=== PATIENT | male | born 1950 | race Caucasian/White ===

== ENCOUNTER → 2017-05-01 | Outpatient (CLI) | payer OTHER ==
[~2017-05-01] MED LIST: ACYCLOVIR 200200 MG; ADVAIR 500-501 EACH INH; ADVAIR HFA 230M12 GM INH; ALBUTEROL2.5 MG/0.5 INH; ANTIVERT25 MG PO; ASPIRIN EC81 M1 PO; ASPIRIN325 PO; BACTRIM DS TAB1 EACH PO; BENICAR20 MG PO; BENICAR40 MG PO; BYSTOLIC 5 MG5 M1 PO; CIPRO HC OTIC S10 ML; CLEOCIN HCL150 MG PO; CLEOCIN HCL300 MG PO; COMBIVENT INH; COZAAR 50 MG TA50 M1 PO; DOXYCYCLINE 10100 M1 PO; EFFIENT10 MG PO; FISH OIL 1,001000 M2 PO; FISH OIL 1,2001 EAC3 PO; GLUCOPHAGE1000 MG PO; HYDROCODON-ACE1 EAC7 PO; IBUPROFEN 600600 M1 PO; LIDOCAINE VISC100 ML MM; METFORMIN HCL500 MG PO; MIRAPEX 0.250.25 M1 PO; NESINA25 MG PO; NORCO 5-325 TA1 EACH PO; OMEPRAZOLE40 MG PO; ORADENT 0.1% DEN5 G1; PERCOCET 5-3251 EACH PO; PLAVIX 75 MG TA75 M1 PO; PLAVIX 75 MG TA75 MG PO; RANEXA500 MG PO; SPIRIVA INH; SPIRIVA RESPIMAT4 G1 IH; TOPROL XL50 MG PO; VALIUM2 MG PO; XANAX 0.5 MG0.5 M1 PO; XANAX 0.5 MG0.5 MG PO; XOPENEX 0.63 MG/3 M1 INH; XOPENEX HF1 UDINHALE IH; XOPENEX HFA15 GM INH; ZITHROMAX250 MG PO; ZOCOR 20 MG TAB20 M1 PO; ZOCOR40 MG PO
[2017-05-01 09:13] LABS: CALCIUM 9.6 mg/dL (8.5-10.1); CREATININE 0.9 mg/dL (0.7-1.3); POTASSIUM 4.7 mmol/L (3.5-5.1)
== END ==
LOC: CAT 08:45
PROVIDERS: Internal Medicine Cardiovascular Disease
DX: K80.20 Calculus of gallbladder without cholecystitis without obstruction (principal); N28.1 Cyst of kidney, acquired; K44.9 Diaphragmatic hernia without obstruction or gangrene; R16.2 Hepatomegaly with splenomegaly, not elsewhere classified; I25.10 Atherosclerotic heart disease of native coronary artery without angina pectoris

== ENCOUNTER → 2020-04-15 | Outpatient (CLI) | payer BC, OTHER ==
[~2020-04-15] MED LIST changes: +ASPIR 8181 MG PO; +FLOMAX0.4 MG PO; +LEXAPRO 10 MG T10 M1 PO; +TRADJENTA5 MG PO
== END ==
LOC: SJCVCIMAG 07:35
PROVIDERS: ATTEND Internal Medicine Cardiovascular Disease
DX: I25.10 Atherosclerotic heart disease of native coronary artery without angina pectoris (principal); I73.9 Peripheral vascular disease, unspecified; E11.9 Type 2 diabetes mellitus without complications; I70.8 Atherosclerosis of other arteries; J44.9 Chronic obstructive pulmonary disease, unspecified; I71.4 Abdominal aortic aneurysm, without rupture; I10 Essential (primary) hypertension; E78.00 Pure hypercholesterolemia, unspecified; I25.810 Atherosclerosis of coronary artery bypass graft(s) without angina pectoris; Z95.1 Presence of aortocoronary bypass graft; Z90.49 Acquired absence of other specified parts of digestive tract; Z79.899 Other long term (current) drug therapy; Z79.4 Long term (current) use of insulin

== ENCOUNTER → 2020-04-20 | Outpatient (CLI) | payer BC, OTHER ==
[~2020-04-20] VITALS: Ht 177.8 cm; Wt 108.9 kg
[~2020-04-20] MED LIST changes: +BASAGLAR K100 UNIT/1 SUBQ; +BUDESONIDE-FO10.2 G1 INH; +FISH OIL 1,0001 EAC9 PO; +JARDIANCE25 MG PO
[2020-04-20 07:17] VITALS: BP 127/70
[2020-04-20 07:19] LABS: HEMATOCRIT 38.8 % (42.0-52.0); HEMOGLOBIN 12.6 gm/dL (14.0-18.0); MCH 27.3 pg (26.0-34.0); MCHC 32.5 g/dL (28.0-37.0); MCV 84.2 fL (80.0-100.0); RBC 4.61 mil/uL (4.50-6.00); RDW 17.3 % (10.5-14.5); WBC 5.4 thou/uL (4.0-11.0)
[2020-04-20 07:25] LABS: CALCIUM 9.6 mg/dL (8.5-10.1); CREATININE 0.8 mg/dL (0.7-1.3); POTASSIUM 4.3 mmol/L (3.5-5.1)
--- NOTE | 2020-04-20 17:51 | CATHLAB ---
[facility] [place] [address] INVASIVE PROCEDURE REPORT Name: LYNN DOVER Room #: REG EDMOND Rivero.#: [id number] Admission: 04/20/20 Attend Phys: Bryn Broussard MD Discharge: Date of : 52 Report #: [id number] THIS REPORT FOR: cc: Dakota Judd MD, Rene P. MD Mancuso, Gerald M. MD [facility] ~ APPROVED REPORT Study performed: 04/20/2020 08:01:55 Patient Details Patient Status: Out-Patient Room #: The patient is a 69 year-old male Event Personnel Josse Marquez Licensed Optician, Matt Benitez RN, Viviana Burdick RTR, MJ Bedolla, Sunshine Villalta Monitor Procedures Performed Art Access - R femoral artery* Left Heart Cath Coronaries, Bypass Grafts [id number] [id number] Initial Mod Sed Same Phys/QHP Gr5y [id number] Mod Sed Same Phys/QHP Ea [id number] Indication Chest pain Procedure Narrative The Right Groin^ was infiltrated with subcutaneous anesthesia. A SHEATH BRITE-TIP 6F X 11CM ([id number]) sheath was inserted into the RFA^. Coronary angiography was performed using coronary diagnostic catheters. The right coronary system was accessed and visualized with a JR4 catheter. The left coronary system was accessed and visualized with a JL4 catheter. The left ventricle was accessed and visualized with a STR PIG catheter. Left ventriculogram was performed in 30 degree projection. THE FOLLOWING ARE THE CURRENT GRAFTS: SVG TO OM, MOSES TO LAB, RADIAL TO PDA. ALL OPEN Intraoperative Conscious Sedation Sedation start time: 818 Case end Time: 854 Fentanyl 100.0 mcg Versed 2.0 mg Fluoro Time: 7.51 minutes Dose: DAP 82531.40 cGycm2 [address] [facility] [place] [address] INVASIVE PROCEDURE REPORT Name: LYNN DOVER Room #: REG [facility].#: [id number] Admission: 04/20/20 Attend Phys: Bryn Broussard, Discharge: Date of : 52 Report #: [id number] Contrast Type and Amount: Omnipaque 105 ml Hemodynamics The aortic pressure is 153/64 mmHg with a mean of 78 mmHg. The left ventricular pressure is 145/4 mmHg with a mean of mmHg. The left ventricular end diastolic pressure is 21 mmHg. Conclusion #1. Normal left ventricular size and systolic function EF 55%. Subtle anterior lateral hypokinesis #2 left main large mildly calcified giving rise to LAD and circumflex both of which occluded #3 LAD moderately calcified occludes proximally. This is filled via a MOSES graft. #4 MOSES to LAD is intact as well preserved brisk flow into this LAD diffusely disease around the apex. Retrograde filling of a diagonal system. #5 dominant right is moderately diseased in the mid distal vessel 80 to 90% filling a posterior lateral the PDA is flush occluded at the bifurcation of the PDA and TAMMY. Posterior lateral branch has minimal distribution. #6 relatively small caliber radial graft to the PDA is intact is feeling a relatively small distribution of this PDA which is diffusely diseased #7 SVG to the OM is intact filling OM1 and OM 2 with diffuse irregularity. The graft is widely patent. The anastomosis is 30%. Recommendations and plan: Continue aggressive risk factor modification. No indication for coronary intervention. Dr. Broussard to perform peripheral intervention see his dictation. <ELECTRONICALLY SIGNED> By: Josse Marquez MD, FACC 04/20/201749 49 49 Josse Marquez MD, FACC /INF
== END | disposition home or self-care (01) ==
LOC: CATH 06:30
PROVIDERS: ATTEND Nuclear Medicine Nuclear Cardiology
DX: R07.9 Chest pain, unspecified (principal); I25.10 Atherosclerotic heart disease of native coronary artery without angina pectoris; I70.212 Atherosclerosis of native arteries of extremities with intermittent claudication, left leg; I70.1 Atherosclerosis of renal artery; I10 Essential (primary) hypertension; E78.5 Hyperlipidemia, unspecified; E11.9 Type 2 diabetes mellitus without complications; I25.2 Old myocardial infarction; J44.9 Chronic obstructive pulmonary disease, unspecified; F41.9 Anxiety disorder, unspecified; K21.9 Gastro-esophageal reflux disease without esophagitis; E66.09 Other obesity due to excess calories; Z98.890 Other specified postprocedural states; Z79.899 Other long term (current) drug therapy; Z87.891 Personal history of nicotine dependence; Z82.49 Family history of ischemic heart disease and other diseases of the circulatory system; Z86.73 Personal history of transient ischemic attack (TIA), and cerebral infarction without residual deficits; Z90.49 Acquired absence of other specified parts of digestive tract; Z98.41 Cataract extraction status, right eye; Z98.42 Cataract extraction status, left eye; Z95.1 Presence of aortocoronary bypass graft; Z79.4 Long term (current) use of insulin; Z88.0 Allergy status to penicillin

== ENCOUNTER → 2020-10-16 | Outpatient (CLI) | payer OTHER | LOC: SJCVCIMAG 07:28 | PROVIDERS: ATTEND Internal Medicine Cardiovascular Disease | DX: I71.4 Abdominal aortic aneurysm, without rupture (principal); I72.2 Aneurysm of renal artery; I65.23 Occlusion and stenosis of bilateral carotid arteries ==

== ENCOUNTER → 2021-04-21 | Outpatient (CLI) | payer OTHER | LOC: SJCVC 15:53 | PROVIDERS: ATTEND Internal Medicine Cardiovascular Disease | DX: R94.31 Abnormal electrocardiogram [ECG] [EKG] (principal); I44.5 Left posterior fascicular block; I25.10 Atherosclerotic heart disease of native coronary artery without angina pectoris; I73.9 Peripheral vascular disease, unspecified; E78.00 Pure hypercholesterolemia, unspecified; I10 Essential (primary) hypertension; I71.4 Abdominal aortic aneurysm, without rupture; I65.23 Occlusion and stenosis of bilateral carotid arteries; E11.9 Type 2 diabetes mellitus without complications; Z95.1 Presence of aortocoronary bypass graft; I65.29 Occlusion and stenosis of unspecified carotid artery; J44.9 Chronic obstructive pulmonary disease, unspecified; E66.9 Obesity, unspecified; K42.9 Umbilical hernia without obstruction or gangrene; Z86.73 Personal history of transient ischemic attack (TIA), and cerebral infarction without residual deficits; Z79.82 Long term (current) use of aspirin; Z79.84 Long term (current) use of oral hypoglycemic drugs; Z79.899 Other long term (current) drug therapy; Z87.891 Personal history of nicotine dependence; Z72.89 Other problems related to lifestyle; Z82.49 Family history of ischemic heart disease and other diseases of the circulatory system; Z88.0 Allergy status to penicillin ==